=== PATIENT | female | born 1980 | race American Indian/Alaskan Native ===

== ENCOUNTER 2017-06-23 11:18 | Emergency (ER) | payer BC, MEDICAID ==
[2017-06-23] MEDS ORDERED: SUBLIMAZE IV ONE (16:47)
[2017-06-23] MEDS ORDERED: ZOFRAN IV ONE ×2 (16:48→21:26)
--- NOTE | 2017-06-23 16:49 | Emergency Department Report ---
Blank Doc - Documentation Documentation: Patient is a 36-year-old female presents with left lower quadrant abdominal pain going on for the last couple days. She says she's never had pain like this before patient has a history of a in the past. I will give CT scan and blood work urinalysis and IV pain medicine.
[2017-06-23 17:02] LABS: Hematocrit 39.2 % (30.3-42.9); Hemoglobin 12.5 gm/dl (10.1-14.3); Mean Corpuscular HGB Conc 32 % (30-34); Mean Corpuscular Hemoglobin 24 pg (28-32); Mean Corpuscular Volume 75 fl (79-97); Platelet Count 288 K/mm3 (140-440); Red Blood Count 5.22 M/mm3 (3.65-5.03); Red Cell Distribution Width 17.7 % (13.2-15.2)
[2017-06-23 17:13] LABS: BUN/Creatinine Ratio 16; Blood Urea Nitrogen 11 mg/dL (7-17); Calcium 8.6 mg/dL (8.4-10.2); Hemolysis Index 253; Lipase 19 units/L (13-60)
[2017-06-23 17:33] LABS: Basophils % (Manual) 0 % (0.0-1.8); Eosinophils % (Manual) 0 % (0.0-4.3); Hypochromasia 1+; Total Cells Counted 100
[2017-06-23 17:34] LABS: Burr Cells Few; Platelet Estimate Cons; Poikilocytosis 1+; Tear Drop Cells Few
[2017-06-23] MEDS ORDERED: NACL 0.9% 1000 ML 1,000 ML IV ONE (19:35)
--- NOTE | 2017-06-23 20:04 | Cat Scan Report ---
FINAL REPORT EXAM: CT ABDOMEN PELVIS W CON HISTORY: LLQ abdominal pain TECHNIQUE: CT abdomen and pelvis with intravenous contrast PRIORS: None. FINDINGS: No acute abnormality identified in the lung bases. No focal abnormality identified within the liver parenchyma. The spleen demonstrates normal size and attenuation. No pancreatic abnormalities seen. The kidneys demonstrate symmetric contrast enhancement. No evidence of hydronephrosis. The adrenal glands are unremarkable Abdominal aorta is normal in caliber. No pathologically enlarged lymph nodes are identified. No signs of free fluid or free air No evidence of small bowel dilatation. Colon is nondistended. No pericolonic inflammatory change. Urinary bladder is unremarkable. The right adnexa there is a 3.3 x 2.7 centimeter structure containing soft tissue in fat density with a central calcification consistent in appearance with an ovarian dermoid no adjacent inflammatory changes are observed. IMPRESSION: Right adnexal dermoid No additional abnormality seen within the abdomen or pelvis
--- NOTE | 2017-06-23 21:20 | Emergency Department Report ---
ED Abdominal Pain HPI - General Chief Complaint: Abdominal Pain Stated Complaint: LOWER LEFT ABDOMINAL PAIN Time Seen by Provider: 06/23/17 18:59 Source: patient Mode of arrival: Ambulatory Limitations: No Limitations - History of Present Illness Initial Comments: Patient is a 36-year-old female presents with left lower quadrant abdominal pain going on for the last couple days. She says she's never had pain like this before patient has a history of a in the past. I will give CT scan and blood work urinalysis and IV pain medicine. MD Complaint: abdominal pain Onset/Timin -: days(s) Location: LLQ Radiation: none Migration to: LLQ Severity: moderate Severity scale (0 -10): 3 Quality: cramping, aching Consistency: intermittent Improves With: nothing Worsens With: nothing Context: other (hx of ovarian cyst ) Associated Symptoms: nausea. denies: vomiting, diarrhea, fever, chills, constipation, dysuria, hematemesis, hematochezia, melena, hematuria, anorexia, syncope - Related Data LMP (females 10-50): this week Home Medications Medication Instructions Recorded Confirmed Last Taken Vit-Fe Fumar-FA [ 1 tab PO QDAY 09/09/15 09/09/15 09/08/15 Vitamin] Previous Rx's Medication Instructions Recorded Last Taken Type Acetaminophen [Acetaminophen TAB] 325 mg PO Q6HR PRN #30 tablet 09/09/15 Unknown Rx Multivitamin with Iron 1 each PO DAILY #30 tablet 09/09/15 Unknown Rx [Multivitamins with Iron] oxyCODONE /ACETAMINOPHEN [Percocet 1 tab PO Q6HR PRN #30 tablet 09/09/15 Unknown Rx 5/325] Labetalol [Normodyne TAB] 200 mg PO BID #60 tablet 09/11/15 Unknown Rx Ondansetron [Zofran Odt] 4 mg PO TID PRN #12 tab.rapdis 06/23/17 Unknown Rx traMADol [Ultram] 50 mg PO Q8HR PRN #15 tablet 06/23/17 Unknown Rx Allergies Allergy/AdvReac Type Severity Reaction Status Date / Time coconut oil Allergy Hives Verified 09/09/15 01:35 corn Allergy Hives Verified 09/09/15 01:35 oyster extract Allergy Hives Verified 04/08/15 11:43 peanut Allergy Hives Verified 09/09/15 01:35 wheat Allergy Hives Verified 09/09/15 01:35 ED Review of Systems ROS: Stated complaint: LOWER LEFT ABDOMINAL PAIN Other details as noted in HPI Constitutional: denies: chills, fever Eyes: denies: eye pain, eye discharge, vision change ENT: denies: ear pain, throat pain Respiratory: denies: cough, shortness of breath, wheezing Cardiovascular: denies: chest pain, palpitations Endocrine: no symptoms reported Gastrointestinal: abdominal pain, nausea. denies: vomiting, diarrhea, constipation, hematemesis, melena, hematochezia Genitourinary: denies: urgency, dysuria, frequency, hematuria, discharge, abnormal menses, dyspareunia Musculoskeletal: denies: back pain, joint swelling, arthralgia, myalgia Skin: denies: rash, lesions Neurological: denies: headache, weakness, paresthesias Psychiatric: denies: anxiety, depression Hematological/Lymphatic: denies: easy bleeding, easy bruising ED Past Medical Hx - Past Medical History Hx Hypertension: No Hx Heart Attack/AMI: No Hx Congestive Heart Failure: No Hx Diabetes: No Hx Deep Vein Thrombosis: No Hx Liver Disease: No Hx Renal Disease: No Hx Sickle Cell Disease: No Hx Seizures: No Hx Asthma: No Hx COPD: No Hx HIV: No - Surgical History Past Surgical History?: No - Social History Smoking Status: Never Smoker Substance Use Type: None - Medications Home Medications: Home Medications Medication Instructions Recorded Confirmed Last Taken Type Acetaminophen [Acetaminophen TAB] 325 mg PO Q6HR PRN #30 tablet 09/09/15 Unknown Rx Multivitamin with Iron 1 each PO DAILY #30 tablet 09/09/15 Unknown Rx [Multivitamins with Iron] Vit-Fe Fumar-FA [ 1 tab PO QDAY 09/09/15 09/09/15 09/08/15 History Vitamin] oxyCODONE /ACETAMINOPHEN [Percocet 1 tab PO Q6HR PRN #30 tablet 09/09/15 Unknown Rx 5/325] Labetalol [Normodyne TAB] 200 mg PO BID #60 tablet 09/11/15 Unknown Rx Ondansetron [Zofran Odt] 4 mg PO TID PRN #12 tab.rapdis 06/23/17 Unknown Rx traMADol [Ultram] 50 mg PO Q8HR PRN #15 tablet 06/23/17 Unknown Rx ED Physical Exam - General Limitations: No Limitations General appearance: alert, in no apparent distress - Head Head exam: Present: atraumatic, normocephalic - Eye Eye exam: Present: normal appearance - ENT ENT exam: Present: mucous membranes moist - Neck Neck exam: Present: normal inspection, full ROM. Absent: tenderness, lymphadenopathy, thyromegaly - Respiratory Respiratory exam: Present: normal lung sounds bilaterally. Absent: respiratory distress, wheezes, rhonchi, stridor, chest wall tenderness - Cardiovascular Cardiovascular Exam: Present: regular rate, normal rhythm, normal heart sounds. Absent: systolic murmur, diastolic murmur, rubs, gallop - GI/Abdominal GI/Abdominal exam: Present: soft, tenderness (LLQ), rigid, normal bowel sounds. Absent: distended, guarding, rebound, organomegaly, mass, bruit, pulsatile mass, hernia - Expanded GI/Abdominal Exam Expanded GI/Abdominal exam: Absent: psoas sign, obturator sign, heel tap sign, Soto's sign, Rovsing's sign, tenderness at Mcburney's Point, ascites - Rectal Rectal exam: Present: deferred - External exam: Present: other (exam Deferrred by ) - Extremities Exam Extremities exam: Present: normal inspection, full ROM, normal capillary refill. Absent: tenderness, pedal edema, joint swelling, calf tenderness - Back Exam Back exam: Present: normal inspection, full ROM. Absent: tenderness, CVA tenderness (R), CVA tenderness (L), muscle spasm, paraspinal tenderness, vertebral tenderness, rash noted - Neurological Exam Neurological exam: Present: alert, oriented X3 - Psychiatric Psychiatric exam: Present: normal affect, normal mood - Skin Skin exam: Present: warm, dry, intact, normal color. Absent: rash ED Course Vital Signs 06/23/17 06/23/17 12:50 17:50 Temperature 97.6 F Pulse Rate 73 Respiratory 16 18 Rate Blood Pressure 103/61 O2 Sat by Pulse 98 Oximetry ED Medical Decision Making - Lab Data Result diagrams: 06/23/17 16:49 06/23/17 16:49 Laboratory Tests 06/23/17 06/23/17 16:49 16:49 WBC 9.2 RBC 5.22 H Hgb 12.5 Hct 39.2 MCV 75 L MCH 24 L MCHC 32 RDW 17.7 H Plt Count 288 Add Manual Diff Complete Total Counted 100 Seg Neuts % (Manual) 91.0 H Band Neutrophils % 0 Lymphocytes % (Manual) 5.0 L Reactive Lymphs % (Man) 0 Monocytes % (Manual) 4.0 Eosinophils % (Manual) 0 Basophils % (Manual) 0 Metamyelocytes % 0 Myelocytes % 0 Promyelocytes % 0 Blast Cells % 0 Nucleated RBC % Not Reportable Seg Neutrophils # Man 8.4 H Band Neutrophils # 0.0 Lymphocytes # (Manual) 0.5 L Abs React Lymphs (Man) 0.0 Monocytes # (Manual) 0.4 Eosinophils # (Manual) 0.0 Basophils # (Manual) 0.0 Metamyelocytes # 0.0 Myelocytes # 0.0 Promyelocytes # 0.0 Blast Cells # 0.0 WBC Morphology Not Reportable Hypersegmented Neuts Not Reportable Hyposegmented Neuts Not Reportable Hypogranular Neuts Not Reportable Smudge Cells Not Reportable Toxic Granulation Not Reportable Toxic Vacuolation Not Reportable Dohle Bodies Not Reportable Pelger-Huet Anomaly Not Reportable Becky Rods Not Reportable Platelet Estimate Cons Clumped Platelets Not Reportable Plt Clumps, EDTA Not Reportable Large Platelets Not Reportable Giant Platelets Not Reportable Platelet Satelliting Not Reportable Plt Morphology Comment Not Reportable RBC Morphology Not Reportable Dimorphic RBCs Not Reportable Polychromasia Not Reportable Hypochromasia 1+ Poikilocytosis 1+ Anisocytosis Not Reportable Microcytosis Not Reportable Macrocytosis Not Reportable Spherocytes Not Reportable Pappenheimer Bodies Not Reportable Sickle Cells Not Reportable Target Cells Not Reportable Tear Drop Cells Few Ovalocytes Not Reportable Helmet Cells Not Reportable Rockwell-Readlyn Bodies Not Reportable Parsons Rings Not Reportable Michelle Cells Few Bite Cells Not Reportable Crenated Cell Not Reportable Elliptocytes Few Acanthocytes (Spur) Not Reportable Rouleaux Not Reportable Hemoglobin C Crystals Not Reportable Schistocytes Not Reportable Malaria parasites Not Reportable Bobby Bodies Not Reportable Hem Pathologist Commnt No Sodium 136 L Potassium 5.4 H Chloride 101.0 Carbon Dioxide 23 Anion Gap 17 BUN 11 Creatinine 0.7 Estimated GFR > 60 BUN/Creatinine Ratio 16 Glucose 122 H Calcium 8.6 Lipase 19 - Radiology Data Radiology results: report reviewed, image reviewed left ovarian Cyst - Medical Decision Making Patient is a 36-year-old female presents with left lower quadrant abdominal pain going on for the last couple days. She says she's never had pain like this before patient has a history of a in the past. I will give CT scan and blood work urinalysis and IV pain medicine. cmp: normal , cbc: normal, CT Abd pelvis: left ovarian cyst, Dermoid cyst plan: nsaids, Zofran follow up with nutritionists in 2-3 days pt verbalized agreement and understanding of same. Critical care attestation.: If time is entered above; I have spent that time in minutes in the direct care of this critically ill patient, excluding procedure time. ED Disposition Clinical Impression: Mild dehydration Ovarian cyst Qualifiers: Laterality: left Qualified Code(s): N83.202 - Unspecified ovarian cyst, left side Nausea and vomiting Qualifiers: Vomiting type: unspecified Vomiting Intractability: non-intractable Qualified Code(s): R11.2 - Nausea with vomiting, unspecified Disposition: DC-01 TO HOME OR SELFCARE Is pt being admited?: No Does the pt Need Aspirin: No Condition: Good Instructions: Abdominal Pain (ED), Acute Nausea and Vomiting (ED), Dehydration (ED) Prescriptions: Ondansetron [Zofran Odt] 4 mg PO TID PRN #12 tab.rapdis PRN Reason: Nausea And Vomiting traMADol [Ultram] 50 mg PO Q8HR PRN #15 tablet PRN Reason: Pain Referrals: PRIMARY CARE,MD [Primary Care Provider] - 3-5 Days Forms: Work/School Release Form(ED) Time of Disposition: 22:06
[2017-06-23] MEDS ORDERED: TORADOL IV ONE (21:26)
[2017-06-23 22:47] VITALS: BP 128/67
== END 2017-06-23 22:48 | disposition home or self-care (01) ==
LOC: ED 11:18
DX: N83.202 Unspecified ovarian cyst, left side (principal); E86.0 Dehydration; R11.2 Nausea with vomiting, unspecified
CPT/HCPCS: 36415; 74177; 80048; 83690; 85007; 85025; 96361; 96374; 96375; 96376; 99284; J1885; J2405; J3010; J7030; Q9967

== ENCOUNTER 2019-11-22 12:54 | Outpatient (CLI) | payer BC ==
--- NOTE | 2019-11-23 09:47 | Mammography Report ---
DIGITAL SCREENING MAMMOGRAM WITH CAD, 11/22/2019 INDICATION: Routine screening mammography. TECHNIQUE: Digital bilateral 2D mammography was obtained in the craniocaudal and mediolateral obliq ue projections. This examination was interpreted with the benefit of Computer-Aided Detection analysi s. COMPARISON: None available. Baseline screening. FINDINGS: Breast Density: There are scattered areas of fibroglandular density. There is no evidence of dominant mass, suspicious calcifications or architectural distortion in eithe r breast. IMPRESSION: Follow up recommendation: Routine yearly BI-RADS Category 1: Negative. A "normal" or negative report should not discourage follow up or biopsy of a clinically significant f inding. A written summary of these findings will be mailed to the patient. The patient will be entered into a mammography reporting system which will generate a reminder letter for the patient's next appointmen t at the appropriate interval. The [employer] recommends yearly mammograms starting at age 40 and continuing as l marco as a woman is in good health. Breast MRI is recommended for women with an approximate 20-25% or greater lifetime risk of breast cancer, including women with a strong family history of breast or ova rafael cancer or who have been treated for Hodgkin's disease. Signer Name: Jani Velasco MD Signed: 11/23/2019 9:43 AM Workstation Name: [id number]
== END 2019-11-22 12:55 | disposition home or self-care (01) ==
LOC: SPVWC 12:54
PROVIDERS: ATTEND Advanced Practice Midwife
DX: Z12.31 Encounter for screening mammogram for malignant neoplasm of breast (principal); N64.89 Other specified disorders of breast
CPT/HCPCS: 77067

== ENCOUNTER 2021-08-19 09:09 | Outpatient (CLI) | payer BC ==
--- NOTE | 2021-08-19 14:23 | Mammography Report ---
DIGITAL SCREENING MAMMOGRAM WITH CAD, 08/19/2021 CLINICAL INFORMATION / INDICATION: Routine screening mammography. SCREENING MAMMO Z12.31 TECHNIQUE: Digital bilateral 2D mammography was obtained in the craniocaudal and mediolateral obliqu e projections. This examination was interpreted with the benefit of Computer-Aided Detection analysis . COMPARISON: 11/22/19. FINDINGS: Breast Density: There are scattered areas of fibroglandular density. No dominant mass, suspicious calcifications, or architectural distortion in either breast. IMPRESSION: No mammographic evidence of malignancy. Follow up recommendation: Routine yearly screening mammogram. BI-RADS Category 1: NEGATIVE A "normal" or negative report should not discourage follow up or biopsy of a clinically significant f inding. A written summary of these findings will be mailed to the patient. The patient will be entered into a mammography reporting system which will generate a reminder letter for the patient's next appointmen t at the appropriate interval. The [employer] recommends yearly mammograms starting at age 40 and continuing as l marco as a woman is in good health. Breast MRI is recommended for women with an approximate 20-25% or greater lifetime risk of breast cancer, including women with a strong family history of breast or ova rafael cancer or who have been treated for Hodgkin's disease. Signer Name: Job Salazar MD Signed: 08/19/2021 2:19 PM Workstation Name: [id number]
== END 2021-08-19 09:10 | disposition home or self-care (01) ==
LOC: SPVWC 09:09
PROVIDERS: ATTEND Advanced Practice Midwife
DX: Z12.31 Encounter for screening mammogram for malignant neoplasm of breast (principal)
CPT/HCPCS: 77067